=== PATIENT | female | born 1990 | race Caucasian/White ===

== ENCOUNTER 2022-07-16 02:20 | Day surgery (SDC) | payer OTHER ==
[2022-07-16] MEDS ORDERED: hydrALAZINE 20 MG/ML VIAL SLOW IVP PRN (02:42)
[2022-07-16] MEDS ORDERED: Acetaminophen 500 MG TAB PO PRN (02:45)
[2022-07-16 02:59] VITALS: BMI 36.1
[2022-07-16 03:04] LABS: Bilirubin Neg (Negative); Blood, Urine Negative (Negative); Clarity Clear (Clear); Glucose, Urine (Dipstick) Normal (Negative); Ketone, Urine Negative (Negative); Leukocyte Negative (Negative); Nitrite Negative (Negative); Protein, Urine (Dipstick) Negative (Neg-Trace); Urobilinogen Normal mg/dL (Less than 2)
[2022-07-16 03:21] LABS: CAUTI Indications for Culture Pelvic or flank pain; RBC/HPF None Seen HPF (0-3); WBC/HPF None Seen HPF (0-3)
[2022-07-16 03:22] LABS: Bacteria/HPF None Seen HPF (None Seen)
[2022-07-16 03:24] LABS: Squamous Epithelial 0-3 HPF (0-3); Urine Culture Reflex No No
== END 2022-07-16 05:13 | disposition home or self-care (01) ==
LOC: CSHLD/OP 02:20
PROVIDERS: ATTEND Obstetrics & Gynecology
DX: O26.892 Other specified pregnancy related conditions, second trimester (principal); R10.12 Left upper quadrant pain; O13.2 Gestational [pregnancy-induced] hypertension without significant proteinuria, second trimester; O34.211 Maternal care for low transverse scar from previous cesarean delivery; O36.5920 Maternal care for other known or suspected poor fetal growth, second trimester, not applicable or unspecified; Z3A.27 27 weeks gestation of pregnancy
CPT/HCPCS: 76815; 81001; 99283